=== PATIENT | male | born 1975 | race Caucasian/White ===

== ENCOUNTER 2023-01-25 07:23 | Emergency (ER) | payer MEDICAID ==
[~2023-01-25] VITALS: Ht 172.7 cm; Wt 81.6 kg
[2023-01-25 07:41] VITALS: BP 151/103
--- NOTE | 2023-01-25 07:51 | NUR ---
AMBULATED TO BED 7
[2023-01-25] MEDS ORDERED: MORPHINE SULFATE 4 MG/ML SYR IM ONE (07:55)
--- NOTE | 2023-01-25 08:40 | NUR ---
PT C/O 04/13 TOOTH PAIN, DR MEJIA MADE AWARE. PT STATES IF YOU DC ME I AM GOING TO SIGN BACK IN. DR MEJIA MADE AWARE AND ORDERS FOR DC HOME
--- NOTE | 2023-01-25 08:43 | NUR ---
Patient discharged with v/s stable. Written and verbal after care instructions given and explained. Patient verbalized understanding. Ambulatory with steady gait. All questions addressed prior to discharge. Advised to follow up with PMD.
== END 2023-01-25 08:43 | disposition home or self-care (01) ==
LOC: MED 07:23
DX: K08.89 Other specified disorders of teeth and supporting structures (principal); I10 Essential (primary) hypertension; Z79.899 Other long term (current) drug therapy; Z98.890 Other specified postprocedural states
CPT/HCPCS: 96372; 99283; J2270

== ENCOUNTER 2023-09-26 22:43 | Emergency (ER) | payer MEDICAID, OTHER ==
[~2023-09-26] VITALS: Ht 172.7 cm; Wt 68.0 kg
[2023-09-26 22:43] VITALS: BP 156/90; PULSE 101; RESP 17; TEMP 97.8; O2SAT 98
[2023-09-26 22:50] VITALS: BP 156/90; PULSE 101; RESP 17; TEMP 97.8; O2SAT 98
== END 2023-09-27 00:23 | disposition left against medical advice (07) ==
LOC: MED 22:43
DX: R51.9 Headache, unspecified (principal); R05.9 Cough, unspecified; R06.02 Shortness of breath; R07.9 Chest pain, unspecified; Z53.21 Procedure and treatment not carried out due to patient leaving prior to being seen by health care provider
CPT/HCPCS: 99281

== ENCOUNTER 2024-05-06 01:25 | Emergency (ER) | payer MEDICAID, OTHER ==
[~2024-05-06] VITALS: Ht 172.7 cm; Wt 88.1 kg
[2024-05-06 01:33] VITALS: BP 159/103; PULSE 88; RESP 16; TEMP 98.3; O2SAT 99
[2024-05-06] MEDS: KETOROLAC 30 MG/ML VIAL IM ONE (03:12)
[2024-05-06 03:26] LABS: BASOPHILS # (AUTO) 0.1 K/uL (0.00-0.22); BASOPHILS % (AUTO) 0.8 % (0.0-2.0); EOSINOPHILS # (AUTO) 0.2 K/uL (0-0.4); EOSINOPHILS % (AUTO) 1.7 % (0.0-4.0); HEMATOCRIT 43.7 % (36-52); HEMOGLOBIN 14.5 g/dL (12.0-18.0); LYMPHOCYTES # (AUTO) 1.9 K/uL (2.0-11.5); LYMPHOCYTES % (AUTO) 20.3 % (20.5-51.1); MEAN CORPUSCULAR HEMOGLOBIN 28 pg (27-31); MEAN CORPUSCULAR HGB CONC 33 g/dL (33-37); MONOCYTES # (AUTO) 0.6 K/uL (0.8-1.0); MONOCYTES % (AUTO) 6.4 % (1.7-9.3); NEUTROPHILS # (AUTO) 6.5 K/uL (1.8-7.7); NEUTROPHILS % (AUTO) 70.8 % (42.2-75.2); PLATELET COUNT (AUTO) 283 K/uL (140-450); RED CELL DISTRIBUTION WIDTH 13.3 % (11.6-13.7); WHITE BLOOD COUNT (AUTO) 9.1 K/uL (4.8-10.8)
[2024-05-06] MEDS: MAGNESIUM HYDROXIDE 2400 MG/30 ML UDC PO ONE (03:30)
[2024-05-06 03:38] LABS: ANION GAP 12.9 (8-16); CALCIUM 8.9 mg/dL (8.5-10.1); CARBON DIOXIDE 26.2 mmol/L (21-32); POTASSIUM 4.1 mmol/L (3.5-5.1)
[2024-05-06] MEDS: POLYETHYLENE GLYCOL 17 GM/PKT PO ONE (03:40)
[2024-05-06 03:44] LABS: ALBUMIN 3.6 g/dL (3.4-5.0); BILIRUBIN,DIRECT 0.1 mg/dL (0.0-0.3); TOTAL BILIRUBIN 0.2 mg/dL (0.0-1.0); TOTAL PROTEIN, SERUM 7.3 g/dL (6.4-8.2)
[2024-05-06 04:47] VITALS: O2SAT 99
[2024-05-06] MEDS ORDERED: MIRABULK PO (05:55)
[2024-05-06] MEDS ORDERED: MAGN296S70 PO (05:55)
[2024-05-06 08:25] VITALS: BP 159/103; PULSE 88; RESP 16; TEMP 98.3; O2SAT 99
== END 2024-05-06 08:28 | disposition home or self-care (01) ==
LOC: MED 01:25
DX: K59.00 Constipation, unspecified (principal); R10.84 Generalized abdominal pain; I10 Essential (primary) hypertension; I25.10 Atherosclerotic heart disease of native coronary artery without angina pectoris; E11.9 Type 2 diabetes mellitus without complications; Z86.79 Personal history of other diseases of the circulatory system
CPT/HCPCS: 36415; 74176; 80048; 80076; 83690; 85025; 96372; 99285; J1885